=== PATIENT | male | born 1960 | race Caucasian/White ===

== ENCOUNTER → 2017-12-31 | Outpatient (CLI) | payer MEDICARE, OTHER | END | disposition home or self-care (01) | LOC: CDC 12:02 | DX: Z01.810 Encounter for preprocedural cardiovascular examination (principal); R94.31 Abnormal electrocardiogram [ECG] [EKG] | CPT/HCPCS: 93000 ==

== ENCOUNTER 2018-02-02 22:44 | Inpatient (IN) | payer OTHER ==
[~2018-02-02] VITALS: Ht 157.5 cm; Wt 80.8 kg
[~2018-02-02 22:44] MED LIST: ANORO ELLIPTA1 EACH IH; CILOSTAZOL100 MG PO; GLUCOPHAGE1000 MG PO; GLUCOTROL10 MG PO; JANUVIA25 M1 PO; LASIX20 MG PO; LO-DOSE ASPIRIN81 M1 PO; NITROSTAT0.4 MG SL; POTASSIUM CHLO10 MEQ PO; SYNTHROID200 MCG PO; VENTOLIN HFA18 GM IH; ZOCOR80 MG PO
[2018-02-03] VITALS (8 sets, daily range): BP systolic 96–168; BP diastolic 52–97
[2018-02-04] VITALS: BP 117/71
[2018-02-04 02:34] VITALS: BP 148/75
[2018-02-04] MEDS ORDERED: TRAMADOL HCL50 MG PO (08:53)
[2018-02-04 08:59] VITALS: BP 118/56
[2018-02-04] MEDS ORDERED: NICODERM CQ1 EAC2 TD (09:37)
== END 2018-02-04 11:47 | disposition home or self-care (01) | DRG 38 ==
LOC: ENRESERV 22:44 → 2SOUTH 02-03 08:32 → ENRESERV 02-03 14:01 → 4WEST 02-03 14:36 → 2SOUTH 02-03 15:55 → 4WEST 02-03 16:56 → ENRESERV 02-04 00:08 → 4EAST 02-04 02:08
PROVIDERS: Surgery
PROC: 03CM0ZZ Extirpation of Matter from Right External Carotid Artery, Open Approach (ICD-10-PCS; principal; 2018-02-03)
DX: I65.21 Occlusion and stenosis of right carotid artery (principal); E87.1 Hypo-osmolality and hyponatremia; E03.9 Hypothyroidism, unspecified; E11.9 Type 2 diabetes mellitus without complications; J43.9 Emphysema, unspecified; I10 Essential (primary) hypertension; E78.00 Pure hypercholesterolemia, unspecified; I25.10 Atherosclerotic heart disease of native coronary artery without angina pectoris; F17.210 Nicotine dependence, cigarettes, uncomplicated; G47.30 Sleep apnea, unspecified; Z88.5 Allergy status to narcotic agent; Z79.84 Long term (current) use of oral hypoglycemic drugs; Z79.82 Long term (current) use of aspirin; Z79.51 Long term (current) use of inhaled steroids; Z99.81 Dependence on supplemental oxygen; Z95.5 Presence of coronary angioplasty implant and graft; I25.2 Old myocardial infarction; Z82.49 Family history of ischemic heart disease and other diseases of the circulatory system
CPT/HCPCS: 82948; 84295; 87641; 93005; 94640; J0690; J1100; J1170; J1644; J1650; J1815; J2405; J2720; J2765; J2795; J3010; J7120; S0020